=== PATIENT | male | born 1965 | race African-American/Black ===

== ENCOUNTER 2023-07-27 20:36 | Emergency (ER) | payer BC ==
[~2023-07-27] VITALS: Ht 182.9 cm; Wt 90.7 kg
[2023-07-27 20:53] VITALS: BP_SYST 170; PULSE 82; RESP 18; TEMP 98.6; O2SAT 98
[2023-07-27 21:10] LABS: BASOPHILS % (AUTO) 0.7 % (0.0-2.0); EOSINOPHILS # (AUTO) 0.1 K/uL (0.0-0.4); EOSINOPHILS % (AUTO) 1.8 % (0.0-4.0); HEMOGLOBIN 13.6 g/dL (14.0-18.0); LYMPHOCYTES # (AUTO) 1.4 K/uL (1.0-5.5); LYMPHOCYTES % (AUTO) 22.8 % (20.5-51.5); MEAN CORPUSCULAR HEMOGLOBIN 29 pg (27-31); MEAN CORPUSCULAR HGB CONC 34 % (32-36); MEAN CORPUSCULAR VOLUME 85 fL (79.0-98.0); MONOCYTES # (AUTO) 0.5 K/uL (0.0-1.0); MONOCYTES % (AUTO) 8.7 % (1.7-9.3); PLATELET COUNT (AUTO) 187 K/uL (130-430); RED BLOOD CELL COUNT(AUTO) 4.74 MIL/uL (4.2-6.2); RED CELL DISTRIBUTION WIDTH 13.7 % (9.0-15.0)
[2023-07-27 22:01] LABS: CALCIUM 8.8 mg/dL (8.4-11.0); CREATININE 1.03 mg/dL (0.55-1.30); POTASSIUM 3.5 mmol/L (3.5-5.1)
[2023-07-27] MEDS ORDERED: TRAM50TA2 PO (22:51)
[2023-07-27] MEDS ORDERED: CEPH-548 PO (22:51)
[2023-07-27 23:22] VITALS: BP_SYST 132; PULSE 83; RESP 18; TEMP 97.7; O2SAT 100
== END 2023-07-27 23:05 | disposition home or self-care (01) ==
LOC: SED 20:36
DX: L03.113 Cellulitis of right upper limb (principal)
CPT/HCPCS: 36415; 80048; 83605; 85025; 99284